=== PATIENT | female | born 1970 | race Caucasian/White ===

== ENCOUNTER 2023-10-08 05:37 | Observation (INO) ==
[~2023-10-08 05:37] MED LIST: Metoclopramide 5 MG/ML VIAL (10 mg) IV PRN; NS 0.45% 1000 ml BAG 1,000 ML IV SCH; Naloxone 0.4 mg VIAL 0.4 mg/ml 1 ml VIAL IV PRN; Ondansetron 4 mg VIAL 2 MG/ML 2 ml VIAL IV PRN; fentaNYL 100 mcg/2 ml 50 MCG/ML VIAL IV PRN
[2023-10-08] MEDS ORDERED: Tranexamic Acid 1 GM/100ML BAG 2,000 MG/200 ML BAG IV ONE (06:04)
[2023-10-08] MEDS ORDERED: ceFAZolin 2 GM PREMIX 2 GM/50 ML BAG ONE (06:04)
[2023-10-08] MEDS ORDERED: ceFAZolin 2 GM in NS PREMIX 2 GM/100 ML BAG IVPB ONE (06:04)
[2023-10-08 06:21] LABS: Rapid COVID-19 Molecular Undetected (Undetected)
[2023-10-08] MEDS: Lactated Ringers 1000 ml BAG 1,000 ML IV SCH ×2 (06:32→11:51)
[2023-10-08] MEDS ORDERED: ROPIVACAINE 5 MG/ML 30 ML BTL (0.5%) ONE ×2 (06:42→07:02)
[2023-10-08] MEDS ORDERED: Lidocaine 2% PF 5 ML VIAL ONE (06:55)
[2023-10-08] MEDS ORDERED: Propofol 10 MG/ML 20 ML BTL ONE ×3 (06:56→09:46)
[2023-10-08] MEDS ORDERED: KETAMINE HCL 10 MG/ML 20 ml VIAL (200 MG) ONE (06:59)
[2023-10-08] MEDS ORDERED: Midazolam 2 mg/2 ml VIAL 1 mg/ml 2 ml VIAL (2 mg) ONE ×3 (07:01→07:56)
[2023-10-08] MEDS ORDERED: Sodium Citrate/Citric Acid LIQ 15 ML UDC ONE (07:19)
[2023-10-08 07:40] LABS: Calcium 9.3 mg/dL (8.6-10.3); Potassium 3.9 mmol/L (3.5-5.0)
[2023-10-08] MEDS ORDERED: Morphine 2 MG/ML SYRINGE IV PRN (07:49)
[2023-10-08] MEDS ORDERED: Ondansetron 4 mg VIAL 2 MG/ML 2 ml VIAL IV PRN (07:49)
[2023-10-08] MEDS ORDERED: Ondansetron ODT 4 mg TAB 4 MG TAB PO PRN (07:49)
[2023-10-08] MEDS ORDERED: Calcium Carb (TUMS) 500 mg CHEW TAB PO PRN (07:49)
[2023-10-08] MEDS ORDERED: Lactulose 30 ml UDC PO PRN (07:49)
[2023-10-08] MEDS ORDERED: Magnesium Hydroxide LIQ 30 ML UDC PO PRN (07:49)
[2023-10-08] MEDS ORDERED: Phenylephrine 40 mcg/mL 10mL (400mcg) SYRINGE ONE (07:51)
[2023-10-08] MEDS ORDERED: Glycopyrrolate IV 0.2 MG/ML 1 ML VIAL ONE (08:10)
[2023-10-08] MEDS ORDERED: Ondansetron 4 mg VIAL 2 MG/ML 2 ml VIAL ONE (08:41)
[2023-10-08] MEDS ORDERED: Dexamethasone IV 4 MG/ML VIAL 1 ml VIAL ONE (08:41)
[2023-10-08 08:42] LABS: Creatinine, Serum 0.66 mg/dL (0.51-0.95); eGFR CKD-EPI 105.5 (>60)
[2023-10-08] MEDS: Acetaminophen IV 1 GM/100ML 1,000 MG/100 ML BAG IV ONE (11:50)
[2023-10-08] MEDS: Scopolamine 1 mg/72hr PATCH TRANSDERM ONE (11:51)
[2023-10-08] MEDS: Buffered Lidocaine 1% SYRIN 1 ml INTRADERM ONE (11:51)
[2023-10-08] MEDS: Magnesium Hydroxide LIQ 30 ML UDC PO SCH (12:18)
[2023-10-08] MEDS: Vitamin THERAPEUTIC TAB PO SCH (12:18)
[2023-10-08 12:36] VITALS: BP 144/75
[2023-10-08] MEDS: ceFAZolin 2 GM in NS PREMIX 2 GM/100 ML BAG IVPB SCH (15:00)
== END 2023-10-08 17:10 | disposition home or self-care (01) ==
LOC: OR 05:37 → SSU 05:37
PROVIDERS: ADMIT Orthopaedic Surgery Adult Reconstructive Orthopaedic Surgery; ATTEND Orthopaedic Surgery Adult Reconstructive Orthopaedic Surgery